=== PATIENT | female | born 1945 | race Caucasian/White ===

== ENCOUNTER → 2017-10-25 | Day surgery (SDC) | payer OTHER, MEDICARE ==
--- NOTE | 2017-10-27 09:17 | PATH ---
Cytology Non-Gynecological Report Patient Name: KEITH MUSA [facility]. Rec. #: [id number] /Age/Gender: 1945 (Age: 72) / F Account: [id number] Location: RADIOLOGY Taken: 10/25/2017 Received: 10/26/2017 Reported: 10/27/2017 Physicians: Bessie Gonzalez M.D. Specimen(s) Received THYROID FNA Clinical History THYROID NODULES Final Diagnosis THYROID, RIGHT, FINE NEEDLE ASPIRATION: SATISFACTORY FOR EVALUATION [place] CLASS II: BENIGN CYTOLOGIC FINDINGS ARE CONSISTENT WITH A BENIGN FOLLICULAR NODULE. BENIGN SMALL FOLLICULAR CELLS AND COLLOID PRESENT. Electronically Signed Luis Alfaro M.D. Gross Description Received are eight direct smears, four of which are air-dried and Diff-Quik stained, and four of which are alcohol fixed and Pap stained. Also received is 20 ml of bloody formalin from which one cellblock is prepared.
== END | disposition home or self-care (01) ==
LOC: JRADIR 09:02
PROVIDERS: ATTEND Internal Medicine Endocrinology, Diabetes & Metabolism
PROC: 0G9H3ZX Drainage of Right Thyroid Gland Lobe, Percutaneous Approach, Diagnostic (ICD-10-PCS; principal; 2017-10-25)
DX: E04.1 Nontoxic single thyroid nodule (principal)
CPT/HCPCS: 76942; 88173; 88305-TC